=== PATIENT | female | born 1975 | race Caucasian/White ===

== ENCOUNTER 2016-05-24 18:11 | Emergency (ER) | payer OTHER ==
--- NOTE | 2016-05-24 19:16 | ED CLINICAL REPORT ---
Clinical Report - Physicians/Mid Levels [facility] [address] [place] [address] 05/24/2016 18:13 Patient: TRELL RAMÍREZ Time Seen: 18:36. Arrived- By private vehicle. Historian- patient. HISTORY OF PRESENT ILLNESS Chief Complaint: Injury to the left foot and . (Also has a cough and congestion). The injury happened about 1 month ago. Occurred at home. The patient sustained a puncture wound from a sharp object. Patient now notes redness and swelling (pt states that a screw punctured her left foot about 1 month ago - she has had persistent pain and redness in the area). She is uncertain whether the soles of shoes were made of rubber. Patient is experiencing moderate pain. Patient denies injury to the head or neck. No other injury. REVIEW OF SYSTEMS The patient sustained a laceration. Foreign body is suspected. She complains of pain on weight bearing. She has had swelling. No tingling, weakness or numbness. PAST HISTORY See nurses notes. PCP: Dr Perdomo PROBLEMS: Colitis. Anxiety Reaction. Cervical Ca 15 years ago . Spastic colon. SURGERIES: Cone bx. Kidney stone removal. Tetanus immunization status is up-to-date. SOCIAL HISTORY Smoker- current status unknown. Occasional alcohol use. No drug use. Residence: [place] Is a local resident. ADDITIONAL NOTES The nursing notes have been reviewed. PHYSICAL EXAM Vital Signs: 05/24/2016 18:18 BP: 122/72. HR: 104. RR: 20. O2 saturation: 99%. Temp: 98.8 F. Pain level now: 3/10. Appearance: Alert. Oriented X3. No acute distress. Head: Head atraumatic. Eyes: Eyes normal inspection. No scleral icterus or pale conjunctivae. ENT: Pharynx normal. Neck: Normal inspection. Neck supple. C-spine non-tender. CVS: Normal heart rate and rhythm. Heart sounds normal. Pulses normal. Respiratory: No respiratory distress. Breath sounds normal. No rales, rhonchi or wheezes. Abdomen: No visible injury. Soft and nontender. Back: Normal inspection. No tenderness. Skin: No cyanosis. (healing, scar let lateral ankle with surrounding healing ridge of erythema; no fluctuance). No pallor or diaphoresis. Extremities: Left foot: mild erythema and swelling, moderate tenderness and single puncture wound of the proximal aspect of the foot. Neurovascular intact distally. (healing wound). No foreign body or deformity. Extremities otherwise negative. Gait: Normal gait. Neuro, Vascular and Tendons: Vascular status intact. Sensation intact. Motor intact. Tendon function intact. Neuro: Oriented X 3. No motor deficit. LABS, X-RAYS, AND EKG Chest X-ray: No acute disease. Normal lung markings present. Normal heart size. Mediastinum normal. Great vessels normal. No infiltrate. Views: PA and lateral. Technique: good. The X-rays were interpreted contemporaneously by me. Lt Foot X-ray: No fracture. Normal alignment. No bony lesion, air in the soft tissue or foreign body. Soft tissues normal. Joint spaces normal. Views: AP, lateral and oblique. Technique: good. The X-rays were interpreted contemporaneously by me. Pulse Oximetry: 05/24/2016 18:18 O2 saturation: 99%. (FIO2 - room air). Interpretation: normal. PROGRESS AND PROCEDURES Course of Care: Tdap Vaccine 0.5 mL IM given. Bactrim DS 1 tab PO. Keflex 500 mg PO given. Foot symptoms present for over 1 month. No evident abscess. Nothing evident to I&D. Appears to be healing wound - may have mild cellulitis. Pt also with chronic cough and with smoking history, may have COPD which may positively respond to antibiotic - use of abx discussed with pt in detail and she wishes to proceed with abx. Patient/family counseled. Disposition: Discharged. Condition: good and stable and improved. CLINICAL IMPRESSION Chronic bacterial bronchitis. Single puncture wound to the left foot; infection present. No puncture wound with foreign body present. INSTRUCTIONS Apply ice. Protect wound and keep wound area clean. Apply neosporin twice daily. Elevate affected areas above chest level. Warnings: INFECTION: Watch for signs of infection (increasing heat and redness, pus-like drainage, swelling, or increased pain). Return or see your doctor if these signs occur. TETANUS: You were given a tetanus shot during your visit. Make a note for future reference. CONTROLLED SUBSTANCE WARNINGS. GENERAL WARNINGS: Return or contact your physician immediately if your condition worsens or changes unexpectedly, if not improving as expected, or if other problems arise. Prescription Medications: Hydrocodone/APAP 5mg / 325mg: take 1 orally every 8 hours as needed for pain. Dispense ten (10). No refill. Cephalexin 500mg: take 1 tab orally every 6 hours for 7 days. No refills Bactrim DS 800 mg / 160 mg: Take 1 tablet orally every 12 hours for 7 days. Dispense fourteen (14). No refills. Substitution is permissible. OTC Medications: Acetaminophen (available over the counter): take according to label instructions. Motrin (available over the counter): take according to label instructions. Follow-up: Follow up with your doctor Conor in two days. Follow-up with: [facility], , , [facility], [address] [place] [address] [address], [place] [phone] Follow up in about two days. (Electronically signed by Richard Van DO 05/24/2016 23:18)
--- NOTE | 2016-05-24 19:16 | ED CLINICAL REPORT ---
Clinical Report - Physicians/Mid Levels [facility] [address] [place] [place] [address] 05/24/2016 18:13 Patient: TRELL RAMÍREZ Time Seen: 18:36. Arrived- By private vehicle. Historian- patient. HISTORY OF PRESENT ILLNESS Chief Complaint: Injury to the left foot and . (Also has a cough and congestion). The injury happened about 1 month ago. Occurred at home. The patient sustained a puncture wound from a sharp object. Patient now notes redness and swelling (pt states that a screw punctured her left foot about 1 month ago - she has had persistent pain and redness in the area). She is uncertain whether the soles of shoes were made of rubber. Patient is experiencing moderate pain. Patient denies injury to the head or neck. No other injury. REVIEW OF SYSTEMS The patient sustained a laceration. Foreign body is suspected. She complains of pain on weight bearing. She has had swelling. No tingling, weakness or numbness. PAST HISTORY See nurses notes. PCP: Dr Perdomo PROBLEMS: Colitis. Anxiety Reaction. Cervical Ca 15 years ago . Spastic colon. SURGERIES: Cone bx. Kidney stone removal. Tetanus immunization status is up-to-date. SOCIAL HISTORY Smoker- current status unknown. Occasional alcohol use. No drug use. Residence: [place] Is a local resident. ADDITIONAL NOTES The nursing notes have been reviewed. PHYSICAL EXAM Vital Signs: 05/24/2016 18:18 BP: 122/72. HR: 104. RR: 20. O2 saturation: 99%. Temp: 98.8 F. Pain level now: 3/10. Appearance: Alert. Oriented X3. No acute distress. Head: Head atraumatic. Eyes: Eyes normal inspection. No scleral icterus or pale conjunctivae. ENT: Pharynx normal. Neck: Normal inspection. Neck supple. C-spine non-tender. CVS: Normal heart rate and rhythm. Heart sounds normal. Pulses normal. Respiratory: No respiratory distress. Breath sounds normal. No rales, rhonchi or wheezes. Abdomen: No visible injury. Soft and nontender. Back: Normal inspection. No tenderness. Skin: No cyanosis. (healing, scar let lateral ankle with surrounding healing ridge of erythema; no fluctuance). No pallor or diaphoresis. Extremities: Left foot: mild erythema and swelling, moderate tenderness and single puncture wound of the proximal aspect of the foot. Neurovascular intact distally. (healing wound). No foreign body or deformity. Extremities otherwise negative. Gait: Normal gait. Neuro, Vascular and Tendons: Vascular status intact. Sensation intact. Motor intact. Tendon function intact. Neuro: Oriented X 3. No motor deficit. LABS, X-RAYS, AND EKG Chest X-ray: No acute disease. Normal lung markings present. Normal heart size. Mediastinum normal. Great vessels normal. No infiltrate. Views: PA and lateral. Technique: good. The X-rays were interpreted contemporaneously by me. Lt Foot X-ray: No fracture. Normal alignment. No bony lesion, air in the soft tissue or foreign body. Soft tissues normal. Joint spaces normal. Views: AP, lateral and oblique. Technique: good. The X-rays were interpreted contemporaneously by me. Pulse Oximetry: 05/24/2016 18:18 O2 saturation: 99%. (FIO2 - room air). Interpretation: normal. PROGRESS AND PROCEDURES Course of Care: Tdap Vaccine 0.5 mL IM given. Bactrim DS 1 tab PO. Keflex 500 mg PO given. Foot symptoms present for over 1 month. No evident abscess. Nothing evident to I&D. Appears to be healing wound - may have mild cellulitis. Pt also with chronic cough and with smoking history, may have COPD which may positively respond to antibiotic - use of abx discussed with pt in detail and she wishes to proceed with abx. Patient/family counseled. Disposition: Discharged. Condition: good and stable and improved. CLINICAL IMPRESSION Chronic bacterial bronchitis. Single puncture wound to the left foot; infection present. No puncture wound with foreign body present. INSTRUCTIONS Apply ice. Protect wound and keep wound area clean. Apply neosporin twice daily. Elevate affected areas above chest level. Warnings: INFECTION: Watch for signs of infection (increasing heat and redness, pus-like drainage, swelling, or increased pain). Return or see your doctor if these signs occur. TETANUS: You were given a tetanus shot during your visit. Make a note for future reference. CONTROLLED SUBSTANCE WARNINGS. GENERAL WARNINGS: Return or contact your physician immediately if your condition worsens or changes unexpectedly, if not improving as expected, or if other problems arise. Prescription Medications: Hydrocodone/APAP 5mg / 325mg: take 1 orally every 8 hours as needed for pain. Dispense ten (10). No refill. Cephalexin 500mg: take 1 tab orally every 6 hours for 7 days. No refills Bactrim DS 800 mg / 160 mg: Take 1 tablet orally every 12 hours for 7 days. Dispense fourteen (14). No refills. Substitution is permissible. OTC Medications: Acetaminophen (available over the counter): take according to label instructions. Motrin (available over the counter): take according to label instructions. Follow-up: Follow up with your doctor Conor in two days. Follow-up with: [facility], , , [facility], [address] [place] [address] [address], [place] [phone] Follow up in about two days. (Electronically signed by Richard Van DO 05/24/2016 23:18)
--- NOTE | 2016-05-24 19:16 | ED NURSING NOTES ---
Clinical Report - Nurses [facility] [address] [place] [address] 05/24/2016 18:13 Patient: TRELL RAMÍREZ TRIAGE Acuity: LEVEL 4. Chief Complaint: SKIN RASH and . started 1 month ago with hitting anle on a screw, had abscess, drained it herself-- now has redness to site and states it is "hard underneith. 18:18. --18:31 Susie Hodge R.N. 18:18 05/24/16. BP: 122/72. HR: 104. RR: 20. O2 saturation: 99%. Temp: 98.8 F. Pain level now: 04/18. --18:31 Susie Hodge R.N. Weight: 72.1 kg stated. Height/Length: 66 inches Per Patient. BMI: 25.7. --18:27 Susie Hodge R.N. Medications None. --18:25 Susie Hodge R.N. Aleve Oral 440 mg, as needed, last dose 1200. --18:26 Susie Hodge R.N. Allergies No Known Drug Allergy. --18:25 Susie Hodge R.N. History Arrived by private vehicle. Historian: patient. Accompanied by family. Primary physician (chen). Reported as located on the left ankle. Onset. (about 1 month ago). ( also c/o cough with green sputum x 2 weeks). PAST MEDICAL HX: Immunizations: up-to-date. SOCIAL HX: Heavy tobacco smoker (cigarette)- less than 1 pack per day. Occasional alcohol use. No drug use. --18:31 Susie Hodge R.N. PROBLEMS: Colitis. Anxiety Reaction. Cervical Ca 15 years ago . Spastic colon. --18:28 Susie Hodge R.N. ADDITIONAL SURGERIES: Cone bx. Kidney stone removal . --18:28 Susie Hodge R.N. Interventions ID band on patient. To treatment room. --18:31 Susie Hodge R.N. PHYSICAL ASSESSMENT 18:18. Ambulatory to room. Patient gowned. GENERAL / NEURO / PSYCH: Alert. The patient does not appear to be in acute distress. Oriented X 4. RESPIRATORY: Respirations not labored. Cough. CVS: Capillary refill less than 2 seconds. SKIN: Skin is warm and dry. Skin tenderness present. Swelling present. Increased warmth present. Erythema present. --18:32 Susie Hodge R.N. NURSING PROGRESS NOTES 18:18. Head of bed elevated. Reassurance given. Patient identifiers checked. Call light placed in reach. Side rails up. Bed placed in lowest position. Patient ready for evaluation- chart flagged. --18:32 Ssuie Hodge R.N. 18:43 05/24/16. ( port x-ray at bedside to do foot films). --18:43 Susie Hodge R.N. 19:15 05/24/2016 Bactrim DS (Sulfamethoxazole-TMP DS) PO Tablets 1 tab given. --19:25 Susie Hodge R.N. 19:15 05/24/2016 Keflex (Cephalexin) PO Capsules 500 mg given. --19:25 Susie Hodge R.N. 19:20 05/24/2016 TDAP IM 0.5 mL given. (Lot#: [id number] , expiration date: 11/16/2017, Talent Specialist: [employer]). Given in the left deltoid. Vaccine information statement provided to the patient. --20:10 Susie Hodge R.N. 1582. Patient transported to radiology by stretcher with tech. --20:11 Susie Hodge R.N. correction to prior entry -time above supposed to be 18:52. Patient returned from radiology by stretcher with tech. --20:11 Susie Hodge R.N. 19:05. Patient returned from radiology by stretcher with tech. --20:13 Susie Hodge R.N. DISPOSITION / DISCHARGE 19:30. Condition at departure: unchanged and stable. No learning barriers present. Discharge instructions provided and reviewed with the patient and spouse. Reviewed medication(s) (vicodin, cipro, bactrim, motrin). Reviewed referral to a acid supervisor. Patient and spouse verbalized understanding. Written instructions provided in Angolan. The patient was discharged home and accompanied by spouse. She left the Emergency Department ambulatory and via private vehicle. Spouse driving. --20:09 Susie Hodge R.N. 19:30 05/24/16. BP: 116/78. HR: 104. RR: 18. O2 saturation: 100%. Temp: deferred. Pain level now: 04/18. --20:09 Susie Hodge R.N. Locked/Released at 05/24/2016 20:14 by Susie Hodge R.N.
--- NOTE | 2016-05-24 19:16 | ED ORDER SUMMARY ---
..... Patient: TRELL RAMÍREZ OrderSheet [facility] VisitID: [id number] [place] [address] 40y, F Registration Date/Time: 05/24/2016 ORDER SHEET Weight: 72.1 kg (stated) Allergies: No Known Drug Allergy GENERAL ORDERS: Foot 3V Left Urgent (18:41 05/24/2016 [facility]) (Ack 18:44 [place]ergley) (19:25 DDean R.N.) Chest 2V Urgent (18:41 05/24/2016 [facility]) (Ack 18:44 [place]ergley) (19:25 DDean R.N.) MEDICATION ORDERS: Bactrim DS PO (Tablet 800-160 mg) 1 tab (NOW) (19:14 05/24/2016 [facility]) (Ack 19:15 DDean R.N.) (19:25 DDean R.N.) Keflex PO 500 mg (NOW) (19:14 05/24/2016 [facility]) (Ack 19:15 DDean R.N.) (19:25 DDean R.N.) Tdap IM 0.5 mL (NOW, per protocol) (19:14 05/24/2016 [facility]) (Ack 19:15 DDean R.N.) (20:10 DDean R.N.) IV FLUIDS: ORDER SHEET NOTES: [Electronically signed by Susie Hodge R.N. (20:05/24/2016)] [Electronically signed by Richard Van DO (23:18 05/24/2016)] [Electronically locked/signed by Susie Hodge R.N. (20:05/24/2016)]
--- NOTE | 2016-05-24 19:16 | ED NURSING NOTES ---
Clinical Report - Nurses [facility] [address] [place] [address] 05/24/2016 18:13 Patient: TRELL RAMÍREZ TRIAGE Acuity: LEVEL 4. Chief Complaint: SKIN RASH and . started 1 month ago with hitting anle on a screw, had abscess, drained it herself-- now has redness to site and states it is "hard underneith. 18:18. --18:31 Susie Hodge R.N. 18:18 05/24/16. BP: 122/72. HR: 104. RR: 20. O2 saturation: 99%. Temp: 98.8 F. Pain level now: 04/18. --18:31 Susie Hodge R.N. Weight: 72.1 kg stated. Height/Length: 66 inches Per Patient. BMI: 25.7. --18:27 Susie Hodge R.N. Medications None. --18:25 Susie Hodge R.N. Aleve Oral 440 mg, as needed, last dose 1200. --18:26 Susie Hodge R.N. Allergies No Known Drug Allergy. --18:25 Susie Hodge R.N. History Arrived by private vehicle. Historian: patient. Accompanied by family. Primary physician (chen). Reported as located on the left ankle. Onset. (about 1 month ago). ( also c/o cough with green sputum x 2 weeks). PAST MEDICAL HX: Immunizations: up-to-date. SOCIAL HX: Heavy tobacco smoker (cigarette)- less than 1 pack per day. Occasional alcohol use. No drug use. --18:31 Susie Hodge R.N. PROBLEMS: Colitis. Anxiety Reaction. Cervical Ca 15 years ago . Spastic colon. --18:28 Susie Hodge R.N. ADDITIONAL SURGERIES: Cone bx. Kidney stone removal . --18:28 Susie Hodge R.N. Interventions ID band on patient. To treatment room. --18:31 Susie Hodge R.N. PHYSICAL ASSESSMENT 18:18. Ambulatory to room. Patient gowned. GENERAL / NEURO / PSYCH: Alert. The patient does not appear to be in acute distress. Oriented X 4. RESPIRATORY: Respirations not labored. Cough. CVS: Capillary refill less than 2 seconds. SKIN: Skin is warm and dry. Skin tenderness present. Swelling present. Increased warmth present. Erythema present. --18:32 Susie Hodge R.N. NURSING PROGRESS NOTES 18:18. Head of bed elevated. Reassurance given. Patient identifiers checked. Call light placed in reach. Side rails up. Bed placed in lowest position. Patient ready for evaluation- chart flagged. --18:32 Susie Hodge R.N. 18:43 05/24/16. ( port x-ray at bedside to do foot films). --18:43 Susie Hodge R.N. 19:15 05/24/2016 Bactrim DS (Sulfamethoxazole-TMP DS) PO Tablets 1 tab given. --19:25 Susie Hodge R.N. 19:15 05/24/2016 Keflex (Cephalexin) PO Capsules 500 mg given. --19:25 Susie Hodge R.N. 19:20 05/24/2016 TDAP IM 0.5 mL given. 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 Given in the left deltoid. Vaccine information statement provided to the patient. --20:10 Susie Hodge R.N. 1582. Patient transported to radiology by stretcher with tech. --20:11 Susie Hodge R.N. correction to prior entry -time above supposed to be 18:52. Patient returned from radiology by stretcher with tech. --20:11 Susie Hodge R.N. 19:05. Patient returned from radiology by stretcher with tech. --20:13 Susie Hodge R.N. DISPOSITION / DISCHARGE 19:30. Condition at departure: unchanged and stable. No learning barriers present. Discharge instructions provided and reviewed with the patient and spouse. Reviewed medication(s) (vicodin, cipro, bactrim, motrin). Reviewed referral to a landscape contractor. Patient and spouse verbalized understanding. Written instructions provided in [place] Islander. The patient was discharged home and accompanied by spouse. She left the Emergency Department ambulatory and via private vehicle. Spouse driving. --20:09 Susie Hodge R.N. 19:30 05/24/16. BP: 116/78. HR: 104. RR: 18. O2 saturation: 100%. Temp: deferred. Pain level now: 04/18. --20:09 Susie Hodge R.N. Locked/Released at 05/24/2016 20:14 by Susie Hodge R.N.
--- NOTE | 2016-05-24 19:16 | ED ORDER SUMMARY ---
..... Patient: TRELL RAMÍREZ OrderSheet [facility] VisitID: [id number] [place] [address] 40y, F Registration Date/Time: 05/24/2016 ORDER SHEET Weight: 72.1 kg (stated) Allergies: No Known Drug Allergy GENERAL ORDERS: Foot 3V Left Urgent (18:41 05/24/2016 [facility]) (Ack 18:44 TBergley) (19:25 DDean R.N.) Chest 2V Urgent (18:41 05/24/2016 [facility]) (Ack 18:44 [place]ergley) (19:25 DDean R.N.) MEDICATION ORDERS: Bactrim DS PO (Tablet 800-160 mg) 1 tab (NOW) (19:14 05/24/2016 [facility]) (Ack 19:15 DDean R.N.) (19:25 DDean R.N.) Keflex PO 500 mg (NOW) (19:14 05/24/2016 [facility]) (Ack 19:15 DDean R.N.) (19:25 DDean R.N.) Tdap IM 0.5 mL (NOW, per protocol) (19:14 05/24/2016 [facility]) (Ack 19:15 DDean R.N.) (20:10 DDean R.N.) IV FLUIDS: ORDER SHEET NOTES: [Electronically signed by Susie Hodge R.N. (20:05/24/2016)] [Electronically signed by Richard Van DO (23:18 05/24/2016)] [Electronically locked/signed by Susie Hodge R.N. (20:05/24/2016)]
--- NOTE | 2016-05-24 20:24 | DIAGNOSTIC IMAGING REPORT ---
PROCEDURE: XR FOOT 3 VIEWS - LEFT INDICATION: TRAUMA/INJURY TECHNIQUE: Three views. COMPARISON: None FINDINGS: Osseous structures, joint spaces and soft tissues are normal. IMPRESSION: 1. Normal left foot. No foreign body or fracture.
--- NOTE | 2016-05-24 20:24 | DIAGNOSTIC IMAGING REPORT ---
PROCEDURE: XR CHEST 2 VIEW INDICATION: COUGH TECHNIQUE: PA and lateral view. COMPARISON: None. FINDINGS: Lungs are clear. Cardiovascular structures are normal. Bony thorax is unremarkable. IMPRESSION: 1. Negative chest.
--- NOTE | 2016-05-24 23:18 | ED MED RECONCILIATION SUMMARY ---
Patient: TRELL RAMÍREZ Medication Reconciliation Report [facility] VisitID: [id number] [place] [address] 40y, F Registration Date/Time: 05/24/2016 Weight: 72.1 kg Height/Length: 66 in. BMI: 25.7 ALLERGIES: No Known Drug Allergy The patient's Home Medications are listed below: THE FOLLOWING MEDICATIONS NEED TO BE RECONCILED: Aleve Oral 440 mg, last dose: 1200 The source(s) of the original Home Medication information: Not obtained. The following Medications were given to the patient in the Emergency Department: Bactrim DS [PO] PO 1 tab, administered: 05/24/2016 7:15:00 PM Keflex [PO] PO 500 mg, administered: 05/24/2016 7:15:00 PM TDAP [IM] IM 0.5 mL, administered: 05/24/2016 7:20:00 PM The following Medications were prescribed to the patient: Acetaminophen (available over the counter): take according to label instructions. -- Richard Van DO Motrin (available over the counter): take according to label instructions. -- Richard Van DO Hydrocodone/APAP 5mg / 325mg: take 1 orally every 8 hours as needed for pain. Dispense ten (10). No refill. -- Richard Van DO Cephalexin 500mg: take 1 tab orally every 6 hours for 7 days. No refills -- Richard Van DO Bactrim DS 800 mg / 160 mg: Take 1 tablet orally every 12 hours for 7 days. Dispense fourteen (14). No refills. Substitution is permissible. -- Richard Van DO
--- NOTE | 2016-05-24 23:18 | ED MAR SUMMARY ---
..... Medication Administration Record [facility] [address] [place] [address] Patient: TRELL RAMÍREZ Visit ID: [id number] 40y, F Weight: 72.1 kg Height/Length: 66 in BMI: 25.7 ALLERGIES: No Known Drug Allergy Given :05/24/2016 Susie Hodge R.N. Medication Administered: BACTRIM DS [PO] (SULFAMETHOXAZOLE-TMP DS), Dose: 1 tab Tablets PO. Medication Ordered: Bactrim DS PO (Tablet 800-160 mg) 1 tab (NOW). Given :05/24/2016 Susie Hodge R.N. Medication Administered: KEFLEX [PO] (CEPHALEXIN), Dose: 500 mg Capsules PO. Medication Ordered: Keflex PO 500 mg (NOW). Given 1905/24/2016 Susie Hodge RCarlitosN. Medication Administered: TDAP [IM], Dose: 0.5 mL IM. Medication Ordered: Tdap IM 0.5 mL (NOW, per protocol).
--- NOTE | 2016-05-24 23:18 | ED MED RECONCILIATION SUMMARY ---
Patient: TRELL RAMÍREZ Medication Reconciliation Report [facility] VisitID: [id number] [place] [address] 40y, F Registration Date/Time: 05/24/2016 Weight: 72.1 kg Height/Length: 66 in. BMI: 25.7 ALLERGIES: No Known Drug Allergy The patient's Home Medications are listed below: THE FOLLOWING MEDICATIONS NEED TO BE RECONCILED: Aleve Oral 440 mg, last dose: 1200 The source(s) of the original Home Medication information: Not obtained. The following Medications were given to the patient in the Emergency Department: Bactrim DS [PO] PO 1 tab, administered: 05/24/2016 7:15:00 PM Keflex [PO] PO 500 mg, administered: 05/24/2016 7:15:00 PM TDAP [IM] IM 0.5 mL, administered: 05/24/2016 7:20:00 PM The following Medications were prescribed to the patient: Acetaminophen (available over the counter): take according to label instructions. -- Richard Van DO Motrin (available over the counter): take according to label instructions. -- Richard Van DO Hydrocodone/APAP 5mg / 325mg: take 1 orally every 8 hours as needed for pain. Dispense ten (10). No refill. -- Richard Van DO Cephalexin 500mg: take 1 tab orally every 6 hours for 7 days. No refills -- Richard Van DO Bactrim DS 800 mg / 160 mg: Take 1 tablet orally every 12 hours for 7 days. Dispense fourteen (14). No refills. Substitution is permissible. -- Richard Van DO
--- NOTE | 2016-05-24 23:18 | ED DISCHARGE INSTRUCTIONS ---
Patient: TRELL RAMÍREZ General Instructions [facility] VisitID: [id number] [place] [id number], F Registration Date/Time: 05/24/2016 Chronic bacterial bronchitis. Single puncture wound to the left foot; infection present. No puncture wound with foreign body present. INSTRUCTIONS Apply ice. Protect wound and keep wound area clean. Apply neosporin twice daily. Elevate affected areas above chest level. Warnings: INFECTION: Watch for signs of infection (increasing heat and redness, pus-like drainage, swelling, or increased pain). Return or see your doctor if these signs occur. TETANUS: You were given a tetanus shot during your visit. Make a note for future reference. CONTROLLED SUBSTANCE WARNINGS. GENERAL WARNINGS: Return or contact your physician immediately if your condition worsens or changes unexpectedly, if not improving as expected, or if other problems arise. Prescription Medications: Hydrocodone/APAP 5mg / 325mg: take 1 orally every 8 hours as needed for pain. Dispense ten (10). No refill. Cephalexin 500mg: take 1 tab orally every 6 hours for 7 days. No refills Bactrim DS 800 mg / 160 mg: Take 1 tablet orally every 12 hours for 7 days. Dispense fourteen (14). No refills. Substitution is permissible. OTC Medications: Acetaminophen (available over the counter): take according to label instructions. Motrin (available over the counter): take according to label instructions. Follow-up: Follow up with your doctor Conor in two days. Follow-up with: [facility], , , [facility], [address] [place] [address] [address], [place] [id number] Follow up in about two days. ADDITIONAL INFORMATION Puncture Wound: Foot A puncture is a hole through the skin. Bacteria, dirt, and debris can be drawn into this wound, increasing the risk of infection. Antibiotics are usually not prescribed for this injury unless signs of infection are already present. Therefore, it is important to observe the wound closely for the signs of infection listed below. If you were wearing a rubber-soled shoe when the sharp object punctured your foot, there is a chance that bacteria (called "pseudomonas") from the sole of the shoe may be dragged into the wound and infect the skin, tendon or bone. This infection may start as late as 2-3 weeks after the injury. It is more serious and harder to treat than the common staph and strep skin infections, so follow the advice below. Home Care: Keep the foot raised during the first 24-48 hours to reduce swelling and pain. DO NOT BEAR WEIGHT on the injured foot if it hurts to do so. You may use acetaminophen (Tylenol) or ibuprofen (Motrin, Advil) to control pain, unless another medicine was prescribed. [NOTE: If you have chronic liver or kidney disease or ever had a stomach ulcer or GI bleeding, talk with your doctor before using these medicines.] You may shower as usual, but do not soak the wound in water (no baths or swimming) until the wound seals and there is no more drainage or bleeding. Keep the wound clean and dry. If a bandage was applied and it becomes wet or dirty, replace it. Otherwise, keep the wound covered until there is no more drainage or bleeding. Follow Up: Most puncture wounds heal within 10 days. However, an infection may sometimes occur despite proper treatment. If small particles were drawn into the puncture wound (such as fragments of cloth, rubber, wood or dirt), an infection may occur. These fragments are very hard to find during the first exam since it is not possible to get a good look inside a puncture wound and they do not show on an X-ray. Antibiotics and a minor surgical procedure to find and remove the foreign object will be needed if this happens. Over the next 2-3 weeks, check the wound daily for the warning signs listed below. If you are still having swelling or pain in the foot after two weeks, you should contact your doctor or return to this facility for an x-ray to look for an infection in the bone. [NOTE: Any X-rays taken will be reviewed by a radiologist. You will be notified of any new findings that may affect your care.] Get Prompt Medical Attention if any of the following occur: Increasing pain Foot becomes cold, blue, numb, or tingly Fever of 100.4F (38C) or higher, or as directed by your healthcare provider Redness, warmth, swelling or drainage from the wound Pain or swelling that lasts for two weeks Bronchitis (Adult: Abx Tx) BRONCHITIS is an infection of the air passages (bronchial tubes). It often occurs during the common cold. Symptoms include cough with mucus (phlegm) and low-grade fever. Bronchitis usually lasts 7-14 days. Mild cases can be treated with simple home remedies. More severe infection is treated with an antibiotic. Home Care: If symptoms are severe, rest at home for the first 2-3 days. When you resume activity, don't let yourself get too tired. Do not smoke. Avoid being exposed to the smoke of others. You may use acetaminophen (Tylenol) or ibuprofen (Motrin, Advil) to control fever or pain, unless another medicine was prescribed for this. [NOTE: If you have chronic liver or kidney disease or ever had a stomach ulcer or GI bleeding, talk with your doctor before using these medicines.] Your appetite may be poor, so a light diet is fine. Avoid dehydration by drinking 6-8 glasses of fluids per day (water, soft, drinks, juices, tea, soup, etc.). Extra fluids will help loosen secretions in the lungs. Dxii-ktp-yvqkbrn cough medicines that containdextromethorphan(such as Robitussin DM) and decongestants (Actifed or Sudafed) may help relieve cough and congestion. [NOTE: Do not use decongestants if you have high blood pressure.] Finish all antibiotic medicine, even if you are feeling better after only a few days. Follow Up with your doctor or as directed if you dont start to feel better after three days. [NOTE: If you are age 65 or older, or if you have chronic asthma or COPD, we recommend a PNEUMOCOCCAL VACCINATION every five years and a yearly INFLUENZAVACCINATION (FLU-SHOT) every . Ask your doctor about this. If you had an X-ray, a radiologist will review it. You will be notified of any new findings that may affect your care.] Get Prompt Medical Attention if any of the following occur: Fever over 100.4F (38.0C) for more than three days Trouble breathing, wheezing or pain with breathing Coughing up blood or increased amounts of colored sputum Weakness, drowsiness, headache, facial pain, ear pain or a stiff neck Diphtheria Toxoid Adsorbed, Pertussis Vaccine, Acellular (Adsorbed), Tetanus Toxoid, Adsorbed Suspension for injection What is this medicine? DIPHTHERIA and TETANUS TOXOIDS; PERTUSSIS VACCINE (dif THEER ee uh and TET n us TOK soids; per TUS iss vak SEEN) is used to prevent diphtheria, tetanus, and pertussis infections. How should I use this medicine? This vaccine is for injection into a muscle. It is given by a health point of care technician. A copy of Vaccine Information Statements will be given before each vaccination. Read this sheet carefully each time. The sheet may change frequently. Talk to your supervisor purification regarding the use of this vaccine in children. While the DTP vaccine may be given to children ages 6 weeks to 7 years and the Tdap vaccine may be given to children at least 10 years old, precautions do apply. What side effects may I notice from receiving this medicine? Side effects that you should report to your doctor or health point of care technician as soon as possible: allergic reactions like skin rash, itching or hives, swelling of the face, lips, or tongue breathing problems fever of 103 degrees F or more flu-like symptoms inconsolable crying infection pain, tingling, numbness in the hands or feet seizures swelling of arm or leg that was injected unusually weak or tired Side effects that usually do not require immediate medical attention (report these side effects to your doctor or health point of care technician if they continue or are bothersome): fussy, irritable loss of appetite fever of 102 degrees F or less pain, tenderness, redness, swelling, or a 'knot' at site where injected vomiting What may interact with this medicine? immune globulin medicines that suppress your immune function like adalimumab, anakinra, infliximab medicines to treat cancer medicines that treat or prevent blood clots like warfarin, enoxaparin, and dalteparin steroid medicines like prednisone or cortisone What if I miss a dose? It is important not to miss your dose. Call your doctor or health point of care technician if you are unable to keep an appointment. Where should I keep my medicine? This drug is given in a hospital or clinic and will not be stored at home. What should I tell my health care provider before I take this medicine? They need to know if you have any of these conditions: blood disorders like hemophilia fever or infection immune system problems neurologic disease seizures an unusual or allergic reaction to vaccines, thimerosal, latex, other medicines, foods, dyes, or preservatives or trying to get breast-feeding What should I watch for while using this medicine? See your health care provider for all shots of this vaccine as directed. To have protection from infection, you must have 3 shots of this vaccine plus boosters as needed. Tell your doctor right away if you have any serious or unusual side effects after getting this vaccine. Hydrocodone Bitartrate, Acetaminophen Oral tablet What is this medicine? ACETAMINOPHEN; HYDROCODONE (a set a SHAYNE ted fen; radha droe KOE done) is a pain reliever. It is used to treat mild to moderate pain. How should I use this medicine? Take this medicine by mouth. Swallow it with a full glass of water. Follow the directions on the prescription label. If the medicine upsets your stomach, take the medicine with food or milk. Do not take more than you are told to take. Talk to your supervisor purification regarding the use of this medicine in children. This medicine is not approved for use in children. What side effects may I notice from receiving this medicine? Side effects that you should report to your doctor or health point of care technician as soon as possible: allergic reactions like skin rash, itching or hives, swelling of the face, lips, or tongue breathing problems confusion feeling faint or lightheaded, falls stomach pain yellowing of the eyes or skin Side effects that usually do not require medical attention (report to your doctor or health point of care technician if they continue or are bothersome): nausea, vomiting stomach upset What may interact with this medicine? alcohol antihistamines isoniazid medicines for depression, anxiety, or psychotic disturbances medicines for sleep muscle relaxants naltrexone narcotic medicines (opiates) for pain phenobarbital ritonavir tramadol What if I miss a dose? If you miss a dose, take it as soon as you can. If it is almost time for your next dose, take only that dose. Do not take double or extra doses. Where should I keep my medicine? Keep out of the reach of children. This medicine can be abused. Keep your medicine in a safe place to protect it from theft. Do not share this medicine with anyone. Selling or giving away this medicine is dangerous and against the law. Store at room temperature between 15 and 30 degrees C (59 and 86 degrees F). Protect from light. Keep container tightly closed. Throw away any unused medicine after the expiration date. Discard unused medicine and used packaging carefully. Pets and children can be harmed if they find used or lost packages. What should I tell my health care provider before I take this medicine? They need to know if you have any of these conditions: brain tumor Crohn's disease, inflammatory bowel disease, or ulcerative colitis drink more than 3 alcohol-containing drinks per day drug abuse or addiction head injury heart or circulation problems kidney disease or problems going to the bathroom liver disease lung disease, asthma, or breathing problems an unusual or allergic reaction to acetaminophen, hydrocodone, other opioid analgesics, other medicines, foods, dyes, or preservatives or trying to get breast-feeding What should I watch for while using this medicine? Tell your doctor or health point of care technician if your pain does not go away, if it gets worse, or if you have new or a different type of pain. You may develop tolerance to the medicine. Tolerance means that you will need a higher dose of the medicine for pain relief. Tolerance is normal and is expected if you take the medicine for a long time. Do not suddenly stop taking your medicine because you may develop a severe reaction. Your body becomes used to the medicine. This does NOT mean you are addicted. Addiction is a behavior related to getting and using a drug for a non-medical reason. If you have pain, you have a medical reason to take pain medicine. Your doctor will tell you how much medicine to take. If your doctor wants you to stop the medicine, the dose will be slowly lowered over time to avoid any side effects. You may get drowsy or dizzy when you first start taking the medicine or change doses. Do not drive, use machinery, or do anything that may be dangerous until you know how the medicine affects you. Stand or sit up slowly. There are different types of narcotic medicines (opiates) for pain. If you take more than one type at the same time, you may have more side effects. Give your health care provider a list of all medicines you use. Your doctor will tell you how much medicine to take. Do not take more medicine than directed. Call emergency for help if you have problems breathing. The medicine will cause constipation. Try to have a bowel movement at least every 2 to 3 days. If you do not have a bowel movement for 3 days, call your doctor or health point of care technician. Too much acetaminophen can be very dangerous. Do not take Tylenol (acetaminophen) or medicines that contain acetaminophen with this medicine. Many non-prescription medicines contain acetaminophen. Always read the labels carefully. Cephalexin Monohydrate Oral tablet What is this medicine? CEPHALEXIN (sef a EV in) is a cephalosporin antibiotic. It is used to treat certain kinds of bacterial infections It will not work for colds, flu, or other viral infections. How should I use this medicine? Take this medicine by mouth with a full glass of water. Follow the directions on the prescription label. This medicine can be taken with or without food. Take your medicine at regular intervals. Do not take your medicine more often than directed. Take all of your medicine as directed even if you think you are better. Do not skip doses or stop your medicine early. Talk to your supervisor purification regarding the use of this medicine in children. While this drug may be prescribed for selected conditions, precautions do apply. What side effects may I notice from receiving this medicine? Side effects that you should report to your doctor or health point of care technician as soon as possible: allergic reactions like skin rash, itching or hives, swelling of the face, lips, or tongue breathing problems pain or trouble passing urine redness, blistering, peeling or loosening of the skin, including inside the mouth severe or watery diarrhea unusually weak or tired yellowing of the eyes, skin Side effects that usually do not require medical attention (report to your doctor or health point of care technician if they continue or are bothersome): gas or heartburn genital or anal irritation headache joint or muscle pain nausea, vomiting What may interact with this medicine? probenecid some other antibiotics What if I miss a dose? If you miss a dose, take it as soon as you can. If it is almost time for your next dose, take only that dose. Do not take double or extra doses. There should be at least 4 to 6 hours between doses. Where should I keep my medicine? Keep out of the reach of children. Store at room temperature between 59 and 86 degrees F (15 and 30 degrees C). Throw away any unused medicine after the expiration date. What should I tell my health care provider before I take this medicine? They need to know if you have any of these conditions: kidney disease stomach or intestine problems, especially colitis an unusual or allergic reaction to cephalexin, other cephalosporins, penicillins, other antibiotics, medicines, foods, dyes or preservatives or trying to get breast-feeding What should I watch for while using this medicine? Tell your doctor or health point of care technician if your symptoms do not begin to improve in a few days. Do not treat diarrhea with over the counter products. Contact your doctor if you have diarrhea that lasts more than 2 days or if it is severe and watery. If you have diabetes, you may get a false-positive result for sugar in your urine. Check with your doctor or health point of care technician. Sulfamethoxazole, Trimethoprim Oral tablet What is this medicine? SULFAMETHOXAZOLE; TRIMETHOPRIM or SMX-TMP (suhl fuh meth OK pascual zohl; trye METH oh prim) is a combination of a sulfonamide antibiotic and a second antibiotic, trimethoprim. It is used to treat or prevent certain kinds of bacterial infections. It will not work for colds, flu, or other viral infections. How should I use this medicine? Take this medicine by mouth with a full glass of water. Follow the directions on the prescription label. Take your medicine at regular intervals. Do not take it more often than directed. Do not skip doses or stop your medicine early. Talk to your supervisor purification regarding the use of this medicine in children. Special care may be needed. This medicine has been used in children as young as 2 months of age. What side effects may I notice from receiving this medicine? Side effects that you should report to your doctor or health point of care technician as soon as possible: allergic reactions like skin rash or hives, swelling of the face, lips, or tongue breathing problems fever or chills, sore throat irregular heartbeat, chest pain joint or muscle pain pain or difficulty passing urine red pinpoint spots on skin redness, blistering, peeling or loosening of the skin, including inside the mouth unusual bleeding or bruising unusually weak or tired yellowing of the eyes or skin Side effects that usually do not require medical attention (report to your doctor or health point of care technician if they continue or are bothersome): diarrhea dizziness headache loss of appetite nausea, vomiting nervousness What may interact with this medicine? Do not take this medicine with any of the following medications: aminobenzoate potassium dofetilide metronidazole This medicine may also interact with the following medications: SANTA inhibitors like benazepril, enalapril, lisinopril, and ramipril cyclosporine digoxin diuretics indomethacin medicines for diabetes methenamine methotrexate phenytoin potassium supplements pyrimethamine sulfinpyrazone tricyclic antidepressants warfarin What if I miss a dose? If you miss a dose, take it as soon as you can. If it is almost time for your next dose, take only that dose. Do not take double or extra doses. Where should I keep my medicine? Keep out of the reach of children. Store at room temperature between 20 to 25 degrees C (68 to 77 degrees F). Protect from light. Throw away any unused medicine after the expiration date. What should I tell my health care provider before I take this medicine? They need to know if you have any of these conditions: anemia asthma being treated with anticonvulsants if you frequently drink alcohol containing drinks kidney disease liver disease low level of folic acid or objzfgm-[id number] dehydrogenase poor nutrition or malabsorption porphyria severe allergies thyroid disorder an unusual or allergic reaction to sulfamethoxazole, trimethoprim, sulfa drugs, other medicines, foods, dyes, or preservatives or trying to get breast-feeding What should I watch for while using this medicine? Tell your doctor or health point of care technician if your symptoms do not improve. Drink several glasses of water a day to reduce the risk of kidney problems. Do not treat diarrhea with over the counter products. Contact your doctor if you have diarrhea that lasts more than 2 days or if it is severe and watery. This medicine can make you more sensitive to the sun. Keep out of the sun. If you cannot avoid being in the sun, wear protective clothing and use a sunscreen. Do not use sun lamps or tanning beds/booths. Acetaminophen Oral tablet What is this medicine? ACETAMINOPHEN (a set a SHAYNE ted fen) is a pain reliever. It is used to treat mild pain and fever. How should I use this medicine? Take this medicine by mouth with a glass of water. Follow the directions on the package or prescription label. Take your medicine at regular intervals. Do not take your medicine more often than directed. Talk to your supervisor purification regarding the use of this medicine in children. While this drug may be prescribed for children as young as 6 years of age for selected conditions, precautions do apply. What side effects may I notice from receiving this medicine? Side effects that you should report to your doctor or health point of care technician as soon as possible: allergic reactions like skin rash, itching or hives, swelling of the face, lips, or tongue breathing problems fever or sore throat redness, blistering, peeling or loosening of the skin, including inside the mouth trouble passing urine or change in the amount of urine unusual bleeding or bruising unusually weak or tired yellowing of the eyes or skin Side effects that usually do not require medical attention (report to your doctor or health point of care technician if they continue or are bothersome): headache nausea, stomach upset What may interact with this medicine? alcohol imatinib isoniazid other medicines with acetaminophen What if I miss a dose? If you miss a dose, take it as soon as you can. If it is almost time for your next dose, take only that dose. Do not take double or extra doses. Where should I keep my medicine? Keep out of reach of children. Store at room temperature between 20 and 25 degrees C (68 and 77 degrees F). Protect from moisture and heat. Throw away any unused medicine after the expiration date. What should I tell my health care provider before I take this medicine? They need to know if you have any of these conditions: if you frequently drink alcohol containing drinks liver disease an unusual or allergic reaction to acetaminophen, other medicines, foods, dyes or preservatives or trying to get breast-feeding What should I watch for while using this medicine? Tell your doctor or health point of care technician if the pain lasts more than 10 days (5 days for children), if it gets worse, or if there is a new or different kind of pain. Also, check with your doctor if a fever lasts for more than 3 days. Do not take other medicines that contain acetaminophen with this medicine. Always read labels carefully. If you have questions, ask your doctor or pharmacist. If you take too much acetaminophen get medical help right away. Too much acetaminophen can be very dangerous and cause liver damage. Even if you do not have symptoms, it is important to get help right away. Ibuprofen Oral tablet What is this medicine? IBUPROFEN (eye BYOO proe fen) is a non-steroidal anti-inflammatory drug (NSAID). It is used for dental pain, fever, headaches or migraines, osteoarthritis, rheumatoid arthritis, or painful monthly periods. It can also relieve minor aches and pains caused by a cold, flu, or sore throat. How should I use this medicine? Take this medicine by mouth with a glass of water. Follow the directions on the prescription label. Take this medicine with food if your stomach gets upset. Try to not lie down for at least 10 minutes after you take the medicine. Take your medicine at regular intervals. Do not take your medicine more often than directed. A special [employer] will be given to you by the pharmacist with each prescription and refill. Be sure to read this information carefully each time. Talk to your supervisor purification regarding the use of this medicine in children. Special care may be needed. What side effects may I notice from receiving this medicine? Side effects that you should report to your doctor or health point of care technician as soon as possible: allergic reactions like skin rash, itching or hives, swelling of the face, lips, or tongue black or bloody stools, blood in the urine or in vomit breathing problems changes in vision chest pain general ill feeling or flu-like symptoms nausea or vomiting redness, blistering, peeling or loosening of the skin, including inside the mouth slurred speech or weakness on one side of the body stomach pain unexplained weight gain or swelling unusually weak or tired yellowing of eyes or skin Side effects that usually do not require medical attention (report to your doctor or health point of care technician if they continue or are bothersome): constipation or diarrhea dizziness gas or heartburn stomach upset What may interact with this medicine? Do not take this medicine with any of the following medications: cidofovir ketorolac methotrexate pemetrexed This medicine may also interact with the following medications: alcohol aspirin diuretics lithium other drugs for inflammation like prednisone warfarin What if I miss a dose? If you miss a dose, take it as soon as you can. If it is almost time for your next dose, take only that dose. Do not take double or extra doses. Where should I keep my medicine? Keep out of the reach of children. Store at room temperature between 15 and 30 degrees C (59 and 86 degrees F). Keep container tightly closed. Throw away any unused medicine after the expiration date. What should I tell my health care provider before I take this medicine? They need to know if you have any of these conditions: asthma cigarette smoker drink more than 3 alcohol containing drinks a day heart disease or circulation problems such as heart failure or leg edema (fluid retention) high blood pressure kidney disease liver disease stomach bleeding or ulcers an unusual or allergic reaction to ibuprofen, aspirin, other NSAIDS, other medicines, foods, dyes, or preservatives or trying to get breast-feeding What should I watch for while using this medicine? Tell your doctor or healthcare professional if your symptoms do not start to get better or if they get worse. This medicine does not prevent heart attack or stroke. In fact, this medicine may increase the chance of a heart attack or stroke. The chance may increase with longer use of this medicine and in people who have heart disease. If you take aspirin to prevent heart attack or stroke, talk with your doctor or health point of care technician. Do not take other medicines that contain aspirin, ibuprofen, or naproxen with this medicine. Side effects such as stomach upset, nausea, or ulcers may be more likely to occur. Many medicines available without a prescription should not be taken with this medicine. This medicine can cause ulcers and bleeding in the stomach and intestines at any time during treatment. Ulcers and bleeding can happen without warning symptoms and can cause . To reduce your risk, do not smoke cigarettes or drink alcohol while you are taking this medicine. You may get drowsy or dizzy. Do not drive, use machinery, or do anything that needs mental alertness until you know how this medicine affects you. Do not stand or sit up quickly, especially if you are an older patient. This reduces the risk of dizzy or fainting spells. This medicine can cause you to bleed more easily. Try to avoid damage to your teeth and gums when you brush or floss your teeth. You have been given the following additional information: Puncture Wound, Foot Bronchitis, Antiobiotic Treatment (Adult) Diphtheria Toxoid Adsorbed, Pertussis Vaccine, Acellular (Adsorbed), Tetanus Toxoid, Adsorbed Suspension for injection Hydrocodone Bitartrate, Acetaminophen Oral tablet Cephalexin Monohydrate Oral tablet Sulfamethoxazole, Trimethoprim Oral tablet Acetaminophen Oral tablet Ibuprofen Oral tablet (Electronically signed by Richard Van DO 05/24/2016 23:18)
--- NOTE | 2016-05-24 23:18 | ED MAR SUMMARY ---
..... Medication Administration Record [facility] [address] [place] [address] Patient: TRELL RAMÍREZ Visit ID: [id number], F Weight: 72.1 kg Height/Length: 66 in BMI: 25.7 ALLERGIES: No Known Drug Allergy Given :05/24/2016 Susie Hodge R.N. Medication Administered: BACTRIM DS [PO] (SULFAMETHOXAZOLE-TMP DS), Dose: 1 tab Tablets PO. Medication Ordered: Bactrim DS PO (Tablet 800-160 mg) 1 tab (NOW). Given :05/24/2016 Susie Hodge R.N. Medication Administered: KEFLEX [PO] (CEPHALEXIN), Dose: 500 mg Capsules PO. Medication Ordered: Keflex PO 500 mg (NOW). Given 1905/24/2016 Susie Hodge RCarlitosN. Medication Administered: TDAP [IM], Dose: 0.5 mL IM. Medication Ordered: Tdap IM 0.5 mL (NOW, per protocol).
== END 2016-05-24 19:30 | disposition home or self-care (01) ==
LOC: ED SRH 18:11
DX: S91.332A Puncture wound without foreign body, left foot, initial encounter (principal); L08.9 Local infection of the skin and subcutaneous tissue, unspecified; W45.0XXA Nail entering through skin, initial encounter; Y92.009 Unspecified place in unspecified non-institutional (private) residence as the place of occurrence of the external cause; Y99.9 Unspecified external cause status; J42 Unspecified chronic bronchitis; Z23 Encounter for immunization